=== PATIENT | female | born 1970 | race Asian ===

== ENCOUNTER 2023-12-01 17:27 | Emergency (ER) | payer MEDICAID ==
[2023-12-01 18:01] LABS: ABG BASE EXCESS -3.1 mmol/L (-2.0-3.0); ABG HCO3 19.6 mmol/L (21.0-28.0); ABG PCO2 (T) 29.1 mmHg (32.0-45.0); ABG PH (T) 7.446 (7.350-7.450); ABG PO2 (T) 77.3 mmHg (83.0-108.0); ALLEN'S TEST POSITIVE; FCOHb 0.1 % (0.5-1.5); FLOW 0 L/min; FMetHb 0.4 % (0.0-1.5); FO2Hb 94.5 % (94.0-98.0); MODE ROOM AIR; PATIENT TEMPERATURE 36.9; TOTAL HEMOGLOBIN 14.5 G/dl (12.0-16.0)
[2023-12-01 18:08] LABS: HEMOGLOBIN 13.6 g/dl (12.0-16.0); MEAN PLATELET VOLUME 7.7 FL (7.4-10.4); WHITE BLOOD COUNT 9.2 X10'3 (4.5-11.0)
[2023-12-01 18:10] LABS: BASOPHILS % (AUTO) 0.3 % (0-1); EOSINOPHILS # (AUTO) 0.1 X10'3 (0-0.9); EOSINOPHILS % (AUTO) 0.8 % (0-6); HEMATOCRIT 39.2 % (35.0-45.0); LYMPHOCYTES # (AUTO) 1.6 X10'3 (1.1-4.8); LYMPHOCYTES % (AUTO) 16.8 % (21-51); MEAN CORPUSCULAR HEMOGLOBIN 30.8 PG (27.0-31.0); MEAN CORPUSCULAR HGB CONC 34.6 g/dL (33.0-36.5); MEAN CORPUSCULAR VOLUME 89.1 FL (78-98); MONOCYTES # (AUTO) 0.4 X10'3 (0-0.9); MONOCYTES % (AUTO) 4.2 % (2-12); NEUTROPHILS # (AUTO) 7.2 X10'3 (1.8-7.7); NEUTROPHILS % (AUTO) 77.9 % (42-75); PLATELET COUNT 277 X10'3 (140-440); RED CELL DISTRIBUTION WIDTH 12.7 % (11.5-14.5)
[2023-12-01 18:17] LABS: INR 1.1 INR; PROTHROMBIN TIME 11.9 SECONDS (9.0-12.0)
[2023-12-01 18:23] LABS: ALANINE AMINOTRANSFERASE 36 U/L (12-78); ALBUMIN 3.6 G/DL (3.4-5.0); ALBUMIN/GLOBULIN RATIO 1.1 (1.1-1.5); ALKALINE PHOSPHATASE 66 IU/L (46-116); ANION GAP 12 (8-16); ASPARTATE AMINO TRANSFERASE 20 U/L (10-37); BILIRUBIN,TOTAL 0.7 MG/DL (0.1-1.0); BLOOD UREA NITROGEN 15 MG/DL (7-18); BUN/CREATININE RATIO 20.5 (10.0-20.0); CALCIUM 8.9 MG/DL (8.5-10.1); CHLORIDE 104 MMOL/L (99-107); CREATININE 0.73 MG/DL (0.40-0.90); GLUCOSE 357 MG/DL (70-104); SODIUM 140 MMOL/L (135-145); TOTAL CARBON DIOXIDE 24.1 MMOL/L (24-32); eGFR 84 ML/MIN
[2023-12-01 18:25] LABS: LIPASE 47 U/L (16-77)
[2023-12-01] MEDS ORDERED: iohexol 350MG/ML 100ml bottle IV ONE (18:34)
[2023-12-01 19:09] LABS: BILIRUBIN,URINE NEGATIVE (Neg); CLARITY,URINE CLEAR (Clear); COLOR,URINE YELLOW (Yellow); GLUCOSE, URINE >=1000 mg/dl (Neg); KETONES,URINE 15 mg/dl (Neg); LEUKOCYTE ESTERASE ,URINE NEGATIVE (Neg); NITRITES, URINE NEGATIVE (Neg); OCCULT BLOOD,URINE TRACE-INTACT (Neg); PROTEIN,URINE NEGATIVE (Neg); UROBILINOGEN,URINE 0.2 E.U/dL (0.2-1.0)
[2023-12-01] MEDS: ondansetron/PF 4mg/2ml inj IV ONE ×2 (19:14→19:25)
[2023-12-01 19:15] LABS: UA COLLECTION TYPE CLN CATCH MIDSTREAM
[2023-12-01] MEDS: morphine 4 MG/ML inj SYRINge IV ONE (19:15)
[2023-12-01 19:17] LABS: BACTERIA,URINE NONE SEEN /HPF (Neg); MUCUS STRANDS NONE SEEN /LPF (Neg); SQUAMOUS EPITHELIAL CELL,UR FEW /LPF (FEW); WBC,URINE 0-4 /HPF (0-4)
[2023-12-01] MEDS: ketorolac trometh 15mg/ml vial 15 MG/ML ML IV ONE (19:25)
[2023-12-01 20:11] LABS: C-REACTIVE PROTEIN 0.68 MG/DL (0.0-0.5)
[2023-12-01] MEDS ORDERED: OXYC-145 PO (21:32)
[2023-12-01 21:37] VITALS: BP 114/82; PULSE 66; RESP 18; TEMP 98.8; O2SAT 95
[2023-12-03] MEDS ORDERED: PER5325T PO (13:20)
== END 2023-12-01 21:47 | disposition home or self-care (01) ==
LOC: ER 17:28
DX: R07.9 Chest pain, unspecified (principal); M79.601 Pain in right arm; R09.02 Hypoxemia
CPT/HCPCS: 36415; 36600; 71045; 71275; 80053; 81001; 82803; 83690; 84145; 84484; 85018; 85025; 85610; 86140; 93005; 96374; 96375; 99285; J2270; J2405; Q9967